=== PATIENT | male | born 2000 | race Caucasian/White ===

== ENCOUNTER 2024-08-31 08:55 | Emergency (ER) | payer MEDICAID ==
[~2024-08-31] VITALS: Ht 172.7 cm; Wt 79.0 kg
[2024-08-31 08:59] VITALS: O2SAT 100
[2024-08-31 09:04] VITALS: BP 119/57; PULSE 67; RESP 16; TEMP 36.7; O2SAT 99
[2024-08-31] MEDS ORDERED: IBUP-2030 MT (11:31)
[2024-08-31] MEDS ORDERED: SULF1TAB48 MT (11:31)
[2024-08-31] MEDS: LIDOCAINE HCL/PF 1% 10 MG/ML 5ML VIAL INFIL ONE (11:31)
== END 2024-08-31 12:03 | disposition home or self-care (01) ==
LOC: ER 09:17
DX: L03.012 Cellulitis of left finger (principal); L60.0 Ingrowing nail
CPT/HCPCS: 99283; 10060; J2003